=== PATIENT | female | born 1975 | race Caucasian/White ===

== ENCOUNTER 2018-01-04 07:04 | Emergency (ER) | payer MEDICAID ==
[2018-01-04] MEDS ORDERED: KETOROLAC 30 MG/1 ML SDV IM ONE (07:22)
[2018-01-04] MEDS ORDERED: CYCLOBENZAPRINE 10 MG TAB PO ONE (07:22)
--- NOTE | 2018-01-04 07:27 | EDPHY ---
H & P Time Seen by Provider: 01/04/18 07:15 HPI/ROS: HPI Left shoulder pain. 48-year-old female by private vehicle. This patient reports that she has a history of chronic left shoulder pain. She describes the pain as a burning and tingling sensation radiating to the posterior superior aspect of the shoulder down through the lateral aspect of her left arm to her elbow. She reports that she has had this on and off for many months. 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 She was working yesterday. She reports the shoulder started bothering her last night and woke her this morning. She describes the pain as being the same pain she has had in the past but just more persistent. She denies any neck pain. She denies any loss of sensation or weakness in her left upper extremity. No shortness of breath or chest pain. She states the pain is worse with movement of the left shoulder. She denies doing a significant amount of repetitive work with the left shoulder. No history of acute trauma. ROS: Constitutional: No fever, no chills. No weakness. Respiratory: No cough. No shortness of breath. Cardiac: No chest pain, no palpitations. Gastrointestinal: No abdominal pain, no vomiting, no diarrhea. Musculoskeletal: No back pain. No neck pain. As above. Skin: No rashes. No lacerations or abrasions. Neurological: No headache. No focal weakness or altered sensation. Past medical history: Has been seen here in the past for suicidal ideation and agoraphobia. Other past medical history includes lupus, cervical cancer, status post cervical surgery, wrist surgery and tubal ligation. Social history: . No alcohol. Nonsmoker. Physical Exam: General Appearance: Alert, no distress. This patient is responding to questions appropriately and in full sentences. This patient appears well- hydrated and well-nourished. Eyes: Pupils equal and round no pallor or injection. No lid edema, erythema or injection. Left shoulder exam: No swelling, erythema, warmth, edema or ecchymosis on gross inspection of the left shoulder. The left shoulder ranges in all planes of motion but she describes some discomfort in the joint itself ranging both passively and actively. The axillary nerve distribution is intact and the left upper extremity is otherwise neurovascularly intact. There is no asymmetry of the left upper extremity verses the right upper extremity. There is no significant point tenderness over the glenohumeral joint and the AC joint. She has no cervical or upper thoracic midline or paraspinal tenderness on palpation. Gastrointestinal: Abdomen is soft and nontender, no masses, bowel sounds normal. No focal tenderness at McBurney's point. No Owen sign. Neurological: Motor sensory function is grossly intact. Cranial nerves are normal. Gait is normal. Skin: Warm and dry, no rashes. Musculoskeletal: Neck is supple and nontender. No pain on flexion of the neck. Extremities are symmetrical. All joints range without pain or impingement except noted. Psychiatric: No agitation. No depression. Database: EKG: Imaging: Left shoulder x-ray series: Negative for fracture, subluxation, dislocation. Interpreted by me. Procedures: Emergency department course: Triage vital signs reviewed. The patient has no contraindications to NSAIDs. Normal creatinine from previous blood work here in 2016. She denies any history of renal dysfunction or peptic ulcer disease. She will be given intramuscular Toradol for pain and 10 mg of oral Flexeril. Left shoulder x-ray series will be obtained. 7:55 a.m., patient re-evaluated. Resting comfortably at this time. Pain medication has helped. She is feeling better. I discussed the results of her x -rays with her. At this time I feel she is safe for discharge. She feels comfortable going home. I will have her follow up with her primary care physician Dr. Ramón Sanders at [facility] for re-evaluation and consideration of advanced imaging such as MRI to evaluate for a possible rotator cuff problem. She can also be referred to an floral specialist as needed by Dr. Sanders. She is in agreement with this plan. I will prescribe her Flexeril and she can start taking ibuprofen later this evening. She understands for follow-up. Return to emergency department precautions reviewed with her. All of her questions were answered. She was discharged in good condition. Differential Diagnosis: The differential diagnosis on this patient includes but is not limited to osteoarthritis of the left shoulder, adhesive capsulitis, rotator cuff injury. Cervical radiculopathy, septic joint, brachial plexus injury/syndrome unlikely. This represents a partial list of diagnoses considered. These considerations are based on history, physical exam, past history, reassessment and diagnostic testing. Smoking Status: Current every day smoker Constitutional: Initial Vital Signs Temperature (C) 36.6 C 01/04/18 07:07 Heart Rate 100 01/04/18 07:07 Respiratory Rate 16 01/04/18 07:07 Blood Pressure 125/73 H 01/04/18 07:07 O2 Sat (%) 97 01/04/18 07:07 O2 Delivery Mode Room Air Allergies/Adverse Reactions: No Known Allergies Allergy (Unverified 01/04/18 07:07) Home Medications: Medication Instructions Recorded Cyclobenzaprine [Flexeril 10 MG 10 mg PO TID #9 tab 01/04/18 (*)] Medical Decision Making - Data Points Medications Given: Discontinued Medications Cyclobenzaprine HCl (Flexeril) 10 mg PO EDNOW ONE Stop: 01/04/18 07:23 Last Admin: 01/04/18 07:30 Dose: 10 mg Ketorolac Tromethamine (Toradol) 60 mg IM EDNOW ONE Stop: 01/04/18 07:23 Last Admin: 01/04/18 07:30 Dose: 60 mg Departure - Departure Disposition: Home, Routine, Self-Care Clinical Impression: Chronic left shoulder pain Condition: Good Instructions: Shoulder Pain (ED) Additional Instructions: Read and follow provided instructions. Follow-up with your primary care physician Dr. Ramón Sanders at the [facility], in 1-2 days for re-evaluation. MRI of the left shoulder should be considered as an outpatient. Dr. Sanders can also refer you to an floral specialist as needed. Take medication as prescribed. You can start taking ibuprofen tonight. Ibuprofen dosin mg every 6 hours with meals for the next 3 days only. Take only as needed for pain. Return to the emergency department for worsening symptoms, worsening pain, swelling, discoloration, fever or other serious concerns. Referrals: Ramón Sanders MD [Primary Care Provider] - As per Instructions Prescriptions: Cyclobenzaprine [Flexeril 10 MG (*)] 10 mg PO TID #9 tab
[2018-01-04 08:15] VITALS: BP 115/84
== END 2018-01-04 08:24 | disposition home or self-care (01) ==
DX: M25.512 Pain in left shoulder (principal); G89.29 Other chronic pain; F17.200 Nicotine dependence, unspecified, uncomplicated
CPT/HCPCS: J1885

== ENCOUNTER 2018-05-14 16:32 | Emergency (ER) | payer MEDICAID ==
[2018-05-14 16:43] VITALS: BP 134/95
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
--- NOTE | 2018-05-14 23:20 | CPEKG ---
Test Reason : OPEN Blood Pressure : / mmHG Vent. Rate : 102 BPM Atrial Rate : 102 BPM P-R Int : 142 ms QRS Dur : 099 ms QT Int : 349 ms P-R-T Axes : 068 078 -02 degrees QTc Int : 455 ms Sinus tachycardia Confirmed by Kaylah Pickard ([id number]) on 05/14/2018 11:19:35 PM Referred By: Confirmed By:Kaylah Pickard
== END 2018-05-14 17:30 | disposition home or self-care (01) ==
LOC: EDUNIT#
DX: F41.9 Anxiety disorder, unspecified (principal)

== ENCOUNTER 2019-01-17 16:32 | Emergency (ER) | payer OTHER, MEDICAID | END 2019-01-17 18:53 | disposition home or self-care (01) ==